=== PATIENT | male | born 1950 | race Caucasian/White ===

== ENCOUNTER 2019-06-20 13:24 | Emergency (ER) | payer MEDICARE, SELFPAY ==
[2019-06-20 13:38] VITALS: BP 152/95; PULSE 73; RESP 18; TEMP 36.7; O2SAT 97; BMI 29.8
--- NOTE | 2019-06-20 13:44 | DI.RAD.S_ITS ---
PROCEDURE: XR CHEST 1V INDICATIONS: palpitations TECHNIQUE: One view of the chest was acquired. COMPARISON: None. FINDINGS: Surgical changes and devices: None. Lungs and pleura: Lungs are clear. No pleural effusions or pneumothorax. Mediastinum: Mediastinal contours appear normal. Heart size is normal. Bones and chest wall: No suspicious bony lesions. Overlying soft tissues appear unremarkable. IMPRESSION: Mildly elevated left hemidiaphragm Dictated by: Greg Avalos M.D. on 06/20/2019 at 14:04 Approved by: Greg Avalos M.D. on 06/20/2019 at 14:04
[2019-06-20] MEDS: SODIUM CHLORIDE 0.9% 1,000 ML 150 ML IV (13:49)
[2019-06-20 13:50] LABS: Add Manual Diff / Slide Review NO; Basophils Absolute Auto 100 /uL (0-100); Basophils Percent Auto 0.7 % (0-2); Eosinophils Absolute Auto 200 /uL (0-450); Eosinophils Percent Auto 1.5 % (2-4); Hematocrit 46.7 % (41-53); Hemoglobin 16.2 g/dL (13.5-17.5); Lymphocytes Absolute Auto 1800 /uL (1100-4500); Lymphocytes Percent Auto 18.2 % (25-40); Mean Corpuscular HGB Conc 34.8 % (30-36); Mean Corpuscular Hemoglobin 31.8 PG (26-34); Mean Corpuscular Volume 91.4 fL (80-100); Monocytes Absolute Auto 900 /uL (0-900); Monocytes Percent Auto 8.6 % (3-14); Neutrophils Absolute Auto 7100 /uL (1500-7000); Platelet Count 189 X10^3/uL (150-400)
[2019-06-20 13:55] VITALS: BP 130/77; PULSE 63; RESP 14; O2SAT 98
[2019-06-20 13:55] LABS: D Dimer 222 ng/mL (<230)
--- NOTE | 2019-06-20 13:55 | ED.ARRPALP ---
HPI - Arrhythmia/Palpitations General Chief Complaint: Arrhythmia/Palpitations Stated Complaint: Sent by [facility], feels faint and tired Time Seen by Provider: 06/20/19 13:27 Source: patient Mode of arrival: Ambulatory Limitations: no limitations History of Present Illness HPI narrative: Patient is a 68-year-old male who presents with generalized is weakness some heart palpitations and some shortness of breath ongoing for the last 2 days. He and his family drove here from [place]. They made frequent stops as they were driving with grandchildren. He says over last 2 days he has been more short of breath with exertion than normal. He generally feels weak and lightheaded when he stands up. He denies any real chest pain. He says he feels heart palpitations when he lies down. He has no fevers sweats chills abdominal pain nausea or vomiting. Related Data Home Medications Medication Instructions Recorded Confirmed Fish Oil 06/20/19 Zocor PO DAILY 06/20/19 aspirin [Aspir-81] 81 mg PO DAILY 06/20/19 06/20/19 timolol 06/20/19 vitamin E 1,000 unit PO DAILY 06/20/19 06/20/19 Allergies Allergy/AdvReac Type Severity Reaction Status Date / Time codeine AdvReac Verified 06/20/19 13:38 Review of Systems Review of Systems ROS Unobtainable: All systems reviewed & are unremarkable except as noted in HPI and below Constitutional Constitutional: Denies body ache(s), Denies chills, Reports daytime sleepiness, Denies fatigue and Reports weakness Eyes Eyes: Denies change in vision, Denies eye discharge, Denies irritation and Denies loss of vision ENT Ears, Nose, Mouth, and Throat: Denies change in voice, Denies neck pain and Denies sore throat Cardiovascular Cardiovascular: Denies chest pain, Reports palpitations, Denies dyspnea on exertion and Denies orthopnea Respiratory Respiratory: Denies dyspnea on exertion Gastrointestinal Gastrointestinal: Denies abdominal pain, Denies change in bowel habits, Denies diarrhea, Denies nausea and Denies vomiting Musculoskeletal Musculoskeletal: Denies neck pain Integumentary/Breasts Skin/Breast: Denies pruritus, Denies erythema, Denies rash and Denies wounds Neurologic Neurologic: Denies loss of vision and Reports weakness Endocrine Endocrine: Denies fatigue and Reports palpitations Patient History Medical History Glaucoma (Acute) Hyperlipidemia (Acute) Social History Smoking Status: Never smoker alcohol intake frequency: a few times a week Substance Use Type: does not use Exam Initial Vital Signs Initial Vital Signs: Vital Signs Temperature 98.0 F 06/20/19 13:38 Pulse Rate 73 06/20/19 13:38 Respiratory Rate 18 06/20/19 13:38 Blood Pressure 152/95 H 06/20/19 13:38 Pulse Oximetry 97 06/20/19 13:38 GENERAL: Well-appearing, well-nourished and in no acute distress. HEENT: Head atraumatic,EOMI, pupils reactive CARDIOVASCULAR: Regular rate and rhythm without murmurs, rubs or gallops. RESPIRATORY: Breath sounds equal bilaterally, no wheezes rales or rhonchi. ABDOMEN: Soft, nontender. Normoactive bowel sounds all 4 quadrants. No guarding or rebound. EXTREMITIES: Normal range of motion, no clubbing or edema. Neurovascularly intact. No calf pain NEUROLOGICAL: Alert and oriented x4.Normal gait and speech. Cranial nerves II through XII grossly intact. SKIN: Warm, dry, no laceration, no petechiae, no rashes or lesions. Scores PERC Score Age greater than or equal to 50 years: Yes Heart rate greater than or equal to 100 bpm: No Room Air O2 Sat less than 95%: No Unilateral leg swelling: No Recent trauma or surgery: No Hemoptysis: No Prior PE or DVT: No Hormone Use: No Total PERC Score: 1 Wells' Criteria for PE Clinical signs and symptoms of DVT: No PE is #1 Dx or equally likely: No Heart rate > 100: No Immobilization at least 3 days or surg in previous 4 weeks: No History of PE or DVT: No Hemoptysis: No Malignancy w/Treatment within 6 months or palliative: No Wells' PE Score total: 0 Course Orders Ordered: ED Orders 06/20/19 13:40 Complete Blood Count AUTO DIFF Stat Comprehensive Metabolic Panel Stat D Dimer Stat Lipase Stat Troponin & CK Cardiac Panel Stat 06/20/19 13:44 XR chest 1V Stat Discontinued Medications Sodium Chloride (Normal Saline 0.9%) 1,000 mls @ 150 mls/hr IV CONT KIMO Last Infusion: 06/20/19 15:34 Dose: 0 mls/hr Documented by: Admin: 06/20/19 13:49 Dose: 150 mls/hr Documented by: KENYA Vital Signs Vital signs: Vital Signs - 8 hr 06/20/19 13:38 06/20/19 13:55 06/20/19 14:25 Temperature 98.0 F Pulse Rate 73 63 82 Respiratory Rate 18 14 16 Blood Pressure 152/95 H Blood Pressure [Right Arm] 130/77 129/67 Pulse Oximetry 97 98 94 06/20/19 14:55 06/20/19 15:05 06/20/19 16:00 Temperature Pulse Rate 63 66 65 Respiratory Rate 12 15 16 Blood Pressure Blood Pressure [Right Arm] 127/76 127/76 137/76 Pulse Oximetry 96 99 96 MDM - Arrhythmia/Palpitations Lab Data Attestation: I reviewed the patient's lab results. Result diagrams: 06/20/19 13:40 06/20/19 13:40 Labs: Lab Results 06/20/19 06/20/19 06/20/19 Range/Units 13:40 13:40 13:40 WBC 10.0 (4.5-11.0) X10^3/uL RBC 5.10 (4.5-5.9) X10^6/uL Hgb 16.2 (13.5-17.5) g/dL Hct 46.7 (41-53) % MCV 91.4 (80-100) fL MCH 31.8 (26-34) PG MCHC 34.8 (30-36) % RDW 14.0 (11.6-14.8) % Plt Count 189 (150-400) X10^3/uL Neut % (Auto) 71.0 (50-75) % Lymph % (Auto) 18.2 L (25-40) % [place] % (Auto) 8.6 (3-14) % Eos % (Auto) 1.5 L (2-4) % Baso % (Auto) 0.7 (0-2) % Neut # (Auto) 7100 H (3188-0874) /uL Lymph # (Auto) 1800 (8620-9326) /uL [place] # (Auto) 900 (0-900) /uL Eos # (Auto) 200 (0-450) /uL Baso # (Auto) 100 (0-100) /uL D-Dimer 222 (<230) ng/mL Sodium 138 (137-145) mmol/L Potassium 4.3 (3.4-5.1) mmol/L Chloride 102 (98-107) mmol/L Carbon Dioxide 29 (22-32) mmol/L BUN 18 (9-20) mg/dL Creatinine 0.90 (0.66-1.25) mg/dL Estimated GFR > 60.0 (>60) mL/min BUN/Creatinine Ratio 20.0 (6-22) Glucose 106 (80-110) mg/dL Calcium 9.8 (8.4-10.2) mg/dL Total Bilirubin 1.5 H (0.2-1.3) mg/dL AST 49 (17-59) IU/L ALT 54 H (<50) IU/L Alkaline Phosphatase 100 (38-126) U/L Total Creatine Kinase 72 (55-170) U/L CK-MB (CK-2) TNP CK-MB (CK-2) Rel Index TNP Troponin I < 0.012 (0.01-0.034) ng/mL Total Protein 7.5 (6.3-8.2) g/dL Albumin 4.6 (3.5-5.0) g/dL Globulin 2.9 (1.7-4.1) g/dL Albumin/Globulin Ratio 1.6 (1.0-2.8) Lipase 107 (23-300) U/L Urine Dip Bedside Urine Glucose Negative Bedside Urine Bilirubin - Negative Bedside Urine Ketone - Negative Urine Specific [place] 1.015 Bedside Urine Occult Blood - Negative Bedside Urine pH 6.5 Bedside Urine Protein - Negative Bedside Urine Urobilinogen - Negative Bedside Urine Nitrite - Negative Bedside Urine Leukocytes - Negative Esterase Imaging Data Chest x-ray: Radiologist's impression: PROCEDURE: XR CHEST 1V INDICATIONS: palpitations TECHNIQUE: One view of the chest was acquired. COMPARISON: None. FINDINGS: Surgical changes and devices: None. Lungs and pleura: Lungs are clear. No pleural effusions or pneumothorax. Mediastinum: Mediastinal contours appear normal. Heart size is normal. Bones and chest wall: No suspicious bony lesions. Overlying soft tissues appear unremarkable. IMPRESSION: Mildly elevated left hemidiaphragm ECG Data Attestation: I personally reviewed and interpreted this ECG as follows: Prior ECG tracings: not available for review Interpretation: Normal sinus rhythm rate 64 p.r. intervals 165 QRS [address] the elevations changes or T-wave inversions no priors to compare MDM Narrative Medical decision making narrative: Blood work overall appears normal. Low risk for PE D-dimer is negative. He received 1 L of IV fluids he is overall feeling better. I recommended a possible Holter monitor as outpatient. Frequent stops while driving. He said he had 1 episode in the ED but nothing was seen on the monitor. Discharge Plan Departure Patient Disposition: Home Clinical Impression: Palpitations Discharge Date/Time: 06/20/19 16:18 Instructions: DI for Palpitations Activity Restrictions/Additional Instructions: *You have been diagnosed with palpitations *What to do: Increase fluid intake. Remember to stop frequently and walk well traveling back to [place] *Continue to take medications as directed *Follow up with your primary care provider in 2-3 days *Return to ER if you should have passing out, increased palpitations, lightheadedness, difficulty speaking weakness in extremities or any new, worsening or concerning symptoms Prescriptions: No Action vitamin E 1,000 unit Capsule 1,000 unit PO DAILY RF: 0 aspirin [Aspir-81] 81 mg Tablet,Delayed Release (Dr/Ec) 81 mg PO DAILY RF: 0 Fish Oil RF: 0 Zocor PO DAILY RF: 0 timolol RF: 0
[2019-06-20 13:59] LABS: Alanine Aminotransferase 54 IU/L (<50); Albumin 4.6 g/dL (3.5-5.0); Albumin Globulin Ratio 1.6 (1.0-2.8); Alkaline Phosphatase 100 U/L (38-126); Aspartate Aminotransferase 49 IU/L (17-59); Bilirubin Total 1.5 mg/dL (0.2-1.3); Blood Urea Nitrogen 18 mg/dL (9-20); Calcium 9.8 mg/dL (8.4-10.2); Carbon Dioxide 29 mmol/L (22-32); Chloride 102 mmol/L (98-107); Creatine Kinase 72 U/L (55-170); Estimated Glomerular Filt Rate > 60.0 mL/min (>60); Globulin 2.9 g/dL (1.7-4.1); Glucose 106 mg/dL (80-110); HEMOLYSIS 18 (0-50); Lipase 107 U/L (23-300); Potassium 4.3 mmol/L (3.4-5.1); Sodium 138 mmol/L (137-145); Total Protein 7.5 g/dL (6.3-8.2)
[2019-06-20 14:10] LABS: Troponin I < 0.012 ng/mL (0.01-0.034)
[2019-06-20 14:25] VITALS: BP 129/67; PULSE 82; RESP 16; O2SAT 94
[2019-06-20 14:55] VITALS: BP 127/76; PULSE 63; RESP 12; O2SAT 96
[2019-06-20 15:05] VITALS: BP 127/76; PULSE 66; RESP 15; O2SAT 99
[2019-06-20 16:00] VITALS: BP 137/76; PULSE 65; RESP 16; O2SAT 96
== END 2019-06-20 16:18 | disposition home or self-care (01) ==
PROVIDERS: Emergency Provider Emergency Medicine
DX: R00.2 Palpitations (principal); E78.5 Hyperlipidemia, unspecified
CPT/HCPCS: 36415; 71045; 80053; 81003; 82550; 83690; 84484; 85025; 85379; 93005; 96360; 96361; 99283; 99285